=== PATIENT | male | born 1985 | race Caucasian/White ===

== ENCOUNTER 2017-10-23 05:52 | Emergency (ER) | payer SELFPAY ==
[~2017-10-23] VITALS: Ht 188 cm; Wt 100.3 kg
[~2017-10-23 05:52] MED LIST: ABILIFY5 MG PO; CELEXA 20MG20 MG/TAB PO; KLONOPIN 0.5MG0.5 MG PO; NORCO 325 MG-51 TAB PO; PERCOCET 325 MG1 TA2 PO; RISPERDAL 0.5M0.5 MG; XANAX 1MG1 MG PO; ZITHROMAX Z PA250 MG PO
[2017-10-23 05:57] VITALS: TEMP 97.7
[2017-10-23 06:41] LABS: HEMATOCRIT 43.7 % (42.0-52.0); HEMOGLOBIN 14.5 g/dl (13.5-18.0); MEAN CELL VOLUME 97 fl (80.0-100.0); MEAN CORPUSCULAR HEMOGLOBIN 32 pg (27.0-31.0); MEAN CORPUSCULAR HGB CONC 33 g/dl (33.0-37.0); MEAN PLATELET VOLUME 12.2 fl (7.4-10.4); PLATELET COUNT 218 K/mm3 (130-400); RED BLOOD COUNT 4.51 M/mm3 (4.20-5.60); REDCELL DISTRIBUTION WIDTH-CV 11.9 % (11.5-14.5)
[2017-10-23 06:50] LABS: ALBUMIN 4.3 gm/dL (3.5-5.0); BILIRUBIN,TOTAL 0.4 mg/dL (0.0-1.0); C-REACTIVE PROTEIN 0.6 mg/dL (0.0-0.9); CALCIUM 9.7 mg/dL (8.4-10.2); CREATININE, serum 0.84 mg/dL (0.66-1.25); TOTAL PROTEIN 8.4 gm/dL (6.4-8.2)
[2017-10-23 07:11] LABS: BAND 4 % (0-10); EOSINOPHIL 4 % (0-4); LYMPHOCYTE 26 % (20.0-51.0); METAMYELOCYTE 1 % (0-0); NEUTROPHILS 61 % (42.0-75.2); PLATELET ESTIMATE NORMAL (NORMAL)
[2017-10-23] MEDS ORDERED: CIPRO 500MG TA500 MG PO (07:21)
[2017-10-23] MEDS ORDERED: PHENERGAN 25 TA25 MG PO (07:21)
[2017-10-23] MEDS ORDERED: FLAGYL500 MG PO (07:21)
[2017-10-23 07:32] VITALS: BP 128/82; PULSE 75
== END 2017-10-23 07:33 | disposition home or self-care (01) ==
LOC: COL.ER 05:52
PROVIDERS: Emergency Medicine
DX: K52.9 Noninfective gastroenteritis and colitis, unspecified (principal)
CPT/HCPCS: J2405; J7030

== ENCOUNTER → 2018-08-18 | Outpatient (CLI) | payer OTHER ==
[~2018-08-18] MED LIST changes: +CIPRO 500MG TA500 MG PO; +FLAGYL500 MG PO; +PHENERGAN 25 TA25 MG PO
== END ==
LOC: COL.RAD 09:23
DX: Z02.71 Encounter for disability determination (principal); M79.671 Pain in right foot; M54.9 Dorsalgia, unspecified

== ENCOUNTER 2018-09-07 19:55 | Emergency (ER) | payer SELFPAY ==
[~2018-09-07] VITALS: Ht 188 cm; Wt 100.0 kg
[2018-09-07 20:01] VITALS: BP 134/96; PULSE 98; TEMP 96.7
== END 2018-09-07 21:24 | disposition home or self-care (01) ==
LOC: COL.ER 19:55
DX: M76.71 Peroneal tendinitis, right leg (principal); M72.2 Plantar fascial fibromatosis; F31.9 Bipolar disorder, unspecified; Z87.891 Personal history of nicotine dependence

== ENCOUNTER 2018-09-16 20:25 | Emergency (ER) | payer MEDICAID ==
[~2018-09-16] VITALS: Ht 185.4 cm; Wt 100.0 kg
[2018-09-16 20:43] VITALS: TEMP 98.9
[2018-09-16 21:31] LABS: BASO # 0.1 (0.0-0.2); BASO % 0.9 % (0.0-2.0); EOS # 0.1 (0.0-0.7); EOS % 0.8 % (0-4.0); GRAN # 4.7 (1.4-6.5); GRAN % 62.5 % (42.2-75.2); HEMATOCRIT 45.8 % (42.0-52.0); HEMOGLOBIN 15.9 g/dl (13.5-18.0); LYMPH # 2.2 (1.2-3.4); LYMPH % 28.5 % (20.0-51.0); MEAN CELL VOLUME 94 fl (80.0-100.0); MEAN CORPUSCULAR HEMOGLOBIN 33 pg (27.0-31.0); MEAN CORPUSCULAR HGB CONC 35 g/dl (33.0-37.0); MEAN PLATELET VOLUME 11.8 fl (7.4-10.4); MONO # 0.5 (0.1-0.6); MONO % 6.6 % (1.7-9.3); PLATELET COUNT 236 K/mm3 (130-400); RED BLOOD COUNT 4.89 M/mm3 (4.20-5.60); REDCELL DISTRIBUTION WIDTH-CV 11.9 % (11.5-14.5)
[2018-09-16 21:43] LABS: ALBUMIN 5.3 gm/dL (3.5-5.0); BILIRUBIN,TOTAL 0.7 mg/dL (0.0-1.0); C-REACTIVE PROTEIN 0.6 mg/dL (0.0-0.9); CALCIUM 10.4 mg/dL (8.4-10.2); CREATININE, serum 0.9 (0.66-1.25); POTASSIUM 3.8 mmol/L (3.4-5.0); TOTAL PROTEIN 9.5 gm/dL (6.4-8.2)
[2018-09-16] MEDS ORDERED: ZOFRAN ODT4 MG PO (23:07)
[2018-09-16 23:34] VITALS: BP 122/79; PULSE 90
[2018-09-17] MEDS ORDERED: PHENERGAN 25 TA25 MG PO (10:03)
[2018-09-17] MEDS ORDERED: ZOFRAN 4MG T4 MG/TAB PO (10:03)
== END 2018-09-16 23:34 | disposition home or self-care (01) ==
LOC: COL.ER 20:25
PROVIDERS: Physician Assistant
DX: R10.13 Epigastric pain (principal); R11.2 Nausea with vomiting, unspecified
CPT/HCPCS: J2060; J2405; J7030; Q9967